=== PATIENT | female | born 1955 | race Hispanic/Latino ===

== ENCOUNTER 2016-11-28 18:25 | Emergency (ER) | payer SELFPAY ==
--- NOTE | 2016-11-28 19:17 | EDDOCDS ---
Nurse's Notes [facility] Name: Mindy Cantu Age: 61 yrs Sex: Female : 1955 Arrival Date: 11/28/2016 Time: 18:25 Bed 17 Private MD: NO PRIMARY PHYSICIAN, . Diagnosis: Acute actinic otitis externa, bilateral;Conjunctivitis;Diarrhea, unspecified Presentation: 11/28 18:34 Presenting complaint: Patient states: Bilateral ear pain radiating to throat, ck1 productive cough, drainage from left eye for one week. Diarrhea with vomiting started today. Adult Sepsis Screening: The patient does not have new or worsening altered mentation. Patient's respiratory rate is less than 22. Systolic blood pressure is greater than 100. Patient has a qSOFA score of 0- Negative Sepsis Screen. Suicide/Homicide risk assessment- the patient denies having any suicidal and/or homicidal ideations and does not present with any other emotional, behavioral or mental health complaints. Status: Patient is not a nursing surgical services director or dependent. Transition of care: patient was not received from another setting of care. 18:34 Acuity: RADHIKA Level 3 ck1 18:34 Method Of Arrival: Walkin/Carried/Asstd ck1 Triage Assessment: 18:37 General: Appears in no apparent distress, comfortable, Behavior is appropriate for age, ck1 cooperative. Pain: Location: right ear and left ear Pain currently is 8 out of 10 on a pain scale. HIV screening NA for this visit Offered previously. GI: Reports bloating. : Denies burning with urination, urinary frequency. Derm: Skin is intact, is healthy with good turgor, Skin is pink, warm & dry. Historical: - Allergies: No known drug Allergies; - Home Meds: 1. levothyroxine 88 mcg Oral cap 1 cap once daily 2. simvastatin 20 mg Oral tab 1 tab once daily - PMHx: Hypothyroidism; Hypercholesterolemia; - PSHx: Hysterectomy; - Social history: Smoking status: Patient states was never smoker of tobacco. Preferred Language: Yakut. - Family history: Not pertinent. - : The pt / caregiver states he / she is not on anticoagulants. Home medication list is obtained from family members. - Exposure Risk Screening:: None identified. Screenin:15 Screening information is obtained from family members. Fall risk: No risks identified. dsf Assistance ADL's: requires no assistance with activities of daily living. Abuse/DV Screen: The patient / caregiver reports he/she is: not in a situation that causes fear, pain or injury. Nutritional screening: No deficits noted. Advance Directives: Currently, there is no health care proxy. home support is adequate. Assessment: 19:15 Adult Sepsis Screening: The patient does not have new or worsening altered mentation. dsf Patient's respiratory rate is less than 22. Systolic blood pressure is greater than 100. Patient has a qSOFA score of 0- Negative Sepsis Screen. General: Appears in no apparent distress, Behavior is appropriate for age, cooperative. Neurological: Level of Consciousness is awake, alert. Cardiovascular: Capillary refill < 3 seconds. Respiratory: Airway is patent Respiratory effort is even, unlabored, Respiratory pattern is regular, symmetrical. GI: Abdomen is non- distended Bowel sounds present X 4 quads. Abd is soft and non tender X 4 quads. Vital Signs: 18:30 BP 145 / 73; Pulse 91; Resp 18 S; Temp 99.4(O); Pulse Ox 97% on R/A; Weight 76.2 kg gr2 (M); Height 4 ft. 11 in. (149.86 cm) (M); Pain 7/10; 18:30 Body Mass Index 33.93 (76.20 kg, 149.86 cm) gr2 Vitals: 18:30 Log In Time: November 28, 2016 at 18:30. gr2 ED Course: 18:27 Patient visited by Nikhil Murcia. gr2 18:27 Patient moved to Waiting gr2 18:28 NO PRIMARY PHYSICIAN, . is Private Physician. gr2 18:33 Patient visited by Nikhil Murcia. gr2 18:33 Patient visited by Nikhil Murcia. gr2 18:33 Patient moved to Pre RCE gr2 18:35 Triage Initiated ck1 18:38 Patient moved to 17 ck1 18:41 [facility] ke 18:41 Patient visited by Rinku Escalante FNP. ke 18:41 Patient visited by Rinku Escalante FNP. ke 18:59 [facility] is Referral Physician. ke 19:15 The patient / caregiver is instructed regarding the plan of care and ED course. dsf 19:15 No IV's were initiated during this patient's visit. No procedures done that require dsf assistance. Order Results: There are currently no results for this order. Outcome: 19:00 Discharge ordered by Provider. kassy 19:15 Discharge Assessment: Patient awake, alert and oriented x 3. No cognitive and/or dsf functional deficits noted. Patient verbalized understanding of disposition instructions. patient administered narcotics - no. The following High Risk Discharge criteria are identified: None. Discharged to home ambulatory. Condition: stable. Discharge instructions given to patient, Instructed on discharge instructions, follow up and referral plans. medication usage, no driving heavy equipment, Demonstrated understanding of instructions, medications, Pt was receptive of discharge instructions/ teaching. Prescriptions given X 5. No special radiology studies were completed. Property sent home with patient. 19:16 Patient left the ED. dsf Signatures: Rinku Escalante, HAND TACKER HAND TACKER Clau WoodRN RN ck1 Tere KlineRN RN dsf Nikhil Murcia gr2 Corrections: (The following items were deleted from the chart) 18:33 18:29 Presenting complaint: ck1 ck1 MTDD
--- NOTE | 2016-11-28 19:17 | EDDOCDS ---
Physician Documentation [facility] Name: Mindy Cantu Age: 61 yrs Sex: Female : 1955 Arrival Date: 11/28/2016 Time: 18:25 Bed 17 Private MD: NO PRIMARY PHYSICIAN, . Disposition: 11/28 19:05 A printed prescription for a controlled substance(s) was provided because [facility] is not able to accept EPCS. Disposition: 11/28/16 19:00 Discharged to Home/Self Care. Impression: Acute actinic otitis externa, bilateral, Conjunctivitis, Diarrhea, unspecified. - Condition is Stable. - Discharge Instructions: Conjunctivitis (Viral and Bacterial), Diarrhea, Otitis Externa. - Prescriptions for Zofran 4 mg Oral Tablet - take 1 tablet by ORAL route 4 times per day As needed; 10 tablet. Amoxicillin 875 mg Oral Tablet - take 1 tablet by ORAL route every 12 hours for 10 days; 20 tablet. Cipro HC 0.2- 1 % Otic Drops, Suspension - instill 3 drop by OTIC route every 12 hours for 7 days; 10 milliliter. Gentamicin 0.3 % Ophthalmic Drops - instill 1 drop by OPHTHALMIC route every 4 hours for 7 days; 1 bottle. [place] 5- 325 mg Oral Tablet - take 1 tablet by ORAL route every 6 hours As needed MDD: 4 tabs; 20 tablet. - Medication Reconciliation, Local Pharmacy Hours form. - Follow up: [facility]; When: Call to arrange an appointment; Reason: Recheck today's complaints, Continuance of care. - Problem is an ongoing problem. - Symptoms are unchanged. Historical: - Allergies: No known drug Allergies; - Home Meds: 1. levothyroxine 88 mcg Oral cap 1 cap once daily 2. simvastatin 20 mg Oral tab 1 tab once daily - PMHx: Hypothyroidism; Hypercholesterolemia; - PSHx: Hysterectomy; - Social history: Smoking status: Patient states was never smoker of tobacco. Preferred Language: Zimbabwean. - Family history: Not pertinent. - : The pt / caregiver states he / she is not on anticoagulants. Home medication list is obtained from family members. - Exposure Risk Screening:: None identified. Vital Signs: 18:30 BP 145 / 73; Pulse 91; Resp 18 S; Temp 99.4(O); Pulse Ox 97% on R/A; Weight 76.2 kg / gr2 167.99 lbs (M); Height 4 ft. 11 in. (149.86 cm) (M); Pain 04/15; 18:30 Body Mass Index 33.93 (76.20 kg, 149.86 cm) gr2 Signatures: Rinku Escalante, SYSTEM DESIGNER SYSTEM DESIGNER Clau Wood RN RN ck1 Tere Kline RN RN dsf MTDD
--- NOTE | 2016-11-30 20:17 | EDDOCDS ---
Physician Documentation [facility] Name: Mindy Cantu Age: 61 yrs Sex: Female : 1955 Arrival Date: 11/28/2016 Time: 18:25 Bed 17 Private MD: NO PRIMARY PHYSICIAN, . Disposition: 11/28 19:05 A printed prescription for a controlled substance(s) was provided because [facility] is not able to accept EPCS. Disposition: 11/28/16 19:00 Discharged to Home/Self Care. Impression: Acute actinic otitis externa, bilateral, Conjunctivitis, Diarrhea, unspecified. - Condition is Stable. - Discharge Instructions: Conjunctivitis (Viral and Bacterial), Diarrhea, Otitis Externa. - Prescriptions for Zofran 4 mg Oral Tablet - take 1 tablet by ORAL route 4 times per day As needed; 10 tablet. Amoxicillin 875 mg Oral Tablet - take 1 tablet by ORAL route every 12 hours for 10 days; 20 tablet. Cipro HC 0.2- 1 % Otic Drops, Suspension - instill 3 drop by OTIC route every 12 hours for 7 days; 10 milliliter. Gentamicin 0.3 % Ophthalmic Drops - instill 1 drop by OPHTHALMIC route every 4 hours for 7 days; 1 bottle. [place] 5- 325 mg Oral Tablet - take 1 tablet by ORAL route every 6 hours As needed MDD: 4 tabs; 20 tablet. - Medication Reconciliation, Local Pharmacy Hours form. - Follow up: [facility]; When: Call to arrange an appointment; Reason: Recheck today's complaints, Continuance of care. - Problem is an ongoing problem. - Symptoms are unchanged. Historical: - Allergies: No known drug Allergies; - Home Meds: 1. levothyroxine 88 mcg Oral cap 1 cap once daily 2. simvastatin 20 mg Oral tab 1 tab once daily - PMHx: Hypothyroidism; Hypercholesterolemia; - PSHx: Hysterectomy; - Social history: Smoking status: Patient states was never smoker of tobacco. Preferred Language: Argentine. - Family history: Not pertinent. - : The pt / caregiver states he / she is not on anticoagulants. Home medication list is obtained from family members. - Exposure Risk Screening:: None identified. Vital Signs: 18:30 BP 145 / 73; Pulse 91; Resp 18 S; Temp 99.4(O); Pulse Ox 97% on R/A; Weight 76.2 kg / gr2 167.99 lbs (M); Height 4 ft. 11 in. (149.86 cm) (M); Pain 7/10; 18:30 Body Mass Index 33.93 (76.20 kg, 149.86 cm) gr2 MDM: 19:19 Financial registration complete. 20:35 [facility] Payment Agreement was scanned into [email or web address] and attached to record. gb 11/29 19:07 T-Sheet-- Draft Copy was scanned into [email or web address] and attached to record. klr Signatures: Shanique Thomas, Reg Reg gb Rinku Escalante, ELECTRIC POWER MACHINE OPERATOR ELECTRIC POWER MACHINE OPERATOR Clau Wood RN RN ckTere Wang RN RN Hali Demarco The chart was reviewed and I authenticate all verbal orders and agree with the evaluation and treatment provided.Attachments: 11/28 20:35 [facility] Payment Agreement gb 11/29 19:07 T-Sheet-- Draft Copy klr Chart Complete MTDD
--- NOTE | 2016-11-30 20:17 | EDDOCDS ---
Nurse's Notes [facility] Name: Mindy Cantu Age: 61 yrs Sex: Female : 1955 Arrival Date: 11/28/2016 Time: 18:25 Bed 17 Private MD: NO PRIMARY PHYSICIAN, . Diagnosis: Acute actinic otitis externa, bilateral;Conjunctivitis;Diarrhea, unspecified Presentation: 11/28 18:34 Presenting complaint: Patient states: Bilateral ear pain radiating to throat, ck1 productive cough, drainage from left eye for one week. Diarrhea with vomiting started today. Adult Sepsis Screening: The patient does not have new or worsening altered mentation. Patient's respiratory rate is less than 22. Systolic blood pressure is greater than 100. Patient has a qSOFA score of 0- Negative Sepsis Screen. Suicide/Homicide risk assessment- the patient denies having any suicidal and/or homicidal ideations and does not present with any other emotional, behavioral or mental health complaints. Status: Patient is not a clinical services specialist or dependent. Transition of care: patient was not received from another setting of care. 18:34 Acuity: RADHIKA Level 3 ck1 18:34 Method Of Arrival: Walkin/Carried/Asstd ck1 Triage Assessment: 18:37 General: Appears in no apparent distress, comfortable, Behavior is appropriate for age, ck1 cooperative. Pain: Location: right ear and left ear Pain currently is 8 out of 10 on a pain scale. HIV screening NA for this visit Offered previously. GI: Reports bloating. : Denies burning with urination, urinary frequency. Derm: Skin is intact, is healthy with good turgor, Skin is pink, warm & dry. Historical: - Allergies: No known drug Allergies; - Home Meds: 1. levothyroxine 88 mcg Oral cap 1 cap once daily 2. simvastatin 20 mg Oral tab 1 tab once daily - PMHx: Hypothyroidism; Hypercholesterolemia; - PSHx: Hysterectomy; - Social history: Smoking status: Patient states was never smoker of tobacco. Preferred Language: Sierra Leonean. - Family history: Not pertinent. - : The pt / caregiver states he / she is not on anticoagulants. Home medication list is obtained from family members. - Exposure Risk Screening:: None identified. Screenin:15 Screening information is obtained from family members. Fall risk: No risks identified. dsf Assistance ADL's: requires no assistance with activities of daily living. Abuse/DV Screen: The patient / caregiver reports he/she is: not in a situation that causes fear, pain or injury. Nutritional screening: No deficits noted. Advance Directives: Currently, there is no health care proxy. home support is adequate. Assessment: 19:15 Adult Sepsis Screening: The patient does not have new or worsening altered mentation. dsf Patient's respiratory rate is less than 22. Systolic blood pressure is greater than 100. Patient has a qSOFA score of 0- Negative Sepsis Screen. General: Appears in no apparent distress, Behavior is appropriate for age, cooperative. Neurological: Level of Consciousness is awake, alert. Cardiovascular: Capillary refill < 3 seconds. Respiratory: Airway is patent Respiratory effort is even, unlabored, Respiratory pattern is regular, symmetrical. GI: Abdomen is non- distended Bowel sounds present X 4 quads. Abd is soft and non tender X 4 quads. Vital Signs: 18:30 BP 145 / 73; Pulse 91; Resp 18 S; Temp 99.4(O); Pulse Ox 97% on R/A; Weight 76.2 kg gr2 (M); Height 4 ft. 11 in. (149.86 cm) (M); Pain 7/10; 18:30 Body Mass Index 33.93 (76.20 kg, 149.86 cm) gr2 Vitals: 18:30 Log In Time: November 28, 2016 at 18:30. gr2 ED Course: 18:27 Patient visited by Nikhil Murcia. gr2 18:27 Patient moved to Waiting gr2 18:28 NO PRIMARY PHYSICIAN, . is Private Physician. gr2 18:33 Patient visited by Nikhil Murcia. gr2 18:33 Patient visited by Nikhil Murcia. gr2 18:33 Patient moved to Pre RCE gr2 18:35 Triage Initiated ck1 18:38 Patient moved to 17 ck1 18:41 Rink[facility]alante FNP is [facility]. ke 18:41 Patient visited by Rinku Escalante FNP. ke 18:41 Patient visited by Rinku Escalante FNP. ke 18:59 [facility] is Referral Physician. ke 19:15 The patient / caregiver is instructed regarding the plan of care and ED course. dsf 19:15 No IV's were initiated during this patient's visit. No procedures done that require dsf assistance. 19:19 Patient visited by Shanique Thomas, Reg. gb 20:31 Patient name changed from Mindy\S\A\S\Cantu\S\ to Mindy\S\Janie\S\Cantu. EDMS 20:35 [facility] Payment Agreement was scanned into [employer] and attached to record. gb 11/29 19:07 T-Sheet-- Draft Copy was scanned into [employer] and attached to record. klr Order Results: There are currently no results for this order. Outcome: 11/28 19:00 Discharge ordered by Provider. kassy 19:15 Discharge Assessment: Patient awake, alert and oriented x 3. No cognitive and/or dsf functional deficits noted. Patient verbalized understanding of disposition instructions. patient administered narcotics - no. The following High Risk Discharge criteria are identified: None. Discharged to home ambulatory. Condition: stable. Discharge instructions given to patient, Instructed on discharge instructions, follow up and referral plans. medication usage, no driving heavy equipment, Demonstrated understanding of instructions, medications, Pt was receptive of discharge instructions/ teaching. Prescriptions given X 5. No special radiology studies were completed. Property sent home with patient. 19:16 Patient left the ED. dsf Signatures: Dispatcher [employer] [facility] Shanique Thomas, Fco Reg Rinku Howard, RESCUE INSTRUCTOR RESCUE INSTRUCTOR Clau WoodRN RN ck1 Tere Kline RN RN dsf Nikhil Murcia gr2 Hali Barba Corrections: (The following items were deleted from the chart) 18:33 18:29 Presenting complaint: ck1 ck1 Chart Complete MTDD
--- NOTE | 2016-11-30 20:17 | EDDOCDS ---
Physician Documentation [facility] Name: Mindy Cantu Age: 61 yrs Sex: Female : 1955 Arrival Date: 11/28/2016 Time: 18:25 Bed 17 Private MD: NO PRIMARY PHYSICIAN, . Disposition: 11/28 19:05 A printed prescription for a controlled substance(s) was provided because [facility] is not able to accept EPCS. Disposition: 11/28/16 19:00 Discharged to Home/Self Care. Impression: Acute actinic otitis externa, bilateral, Conjunctivitis, Diarrhea, unspecified. - Condition is Stable. - Discharge Instructions: Conjunctivitis (Viral and Bacterial), Diarrhea, Otitis Externa. - Prescriptions for Zofran 4 mg Oral Tablet - take 1 tablet by ORAL route 4 times per day As needed; 10 tablet. Amoxicillin 875 mg Oral Tablet - take 1 tablet by ORAL route every 12 hours for 10 days; 20 tablet. Cipro HC 0.2- 1 % Otic Drops, Suspension - instill 3 drop by OTIC route every 12 hours for 7 days; 10 milliliter. Gentamicin 0.3 % Ophthalmic Drops - instill 1 drop by OPHTHALMIC route every 4 hours for 7 days; 1 bottle. [place] 5- 325 mg Oral Tablet - take 1 tablet by ORAL route every 6 hours As needed MDD: 4 tabs; 20 tablet. - Medication Reconciliation, Local Pharmacy Hours form. - Follow up: [facility]; When: Call to arrange an appointment; Reason: Recheck today's complaints, Continuance of care. - Problem is an ongoing problem. - Symptoms are unchanged. Historical: - Allergies: No known drug Allergies; - Home Meds: 1. levothyroxine 88 mcg Oral cap 1 cap once daily 2. simvastatin 20 mg Oral tab 1 tab once daily - PMHx: Hypothyroidism; Hypercholesterolemia; - PSHx: Hysterectomy; - Social history: Smoking status: Patient states was never smoker of tobacco. Preferred Language: Jordanian. - Family history: Not pertinent. - : The pt / caregiver states he / she is not on anticoagulants. Home medication list is obtained from family members. - Exposure Risk Screening:: None identified. Vital Signs: 18:30 BP 145 / 73; Pulse 91; Resp 18 S; Temp 99.4(O); Pulse Ox 97% on R/A; Weight 76.2 kg / gr2 167.99 lbs (M); Height 4 ft. 11 in. (149.86 cm) (M); Pain 7/10; 18:30 Body Mass Index 33.93 (76.20 kg, 149.86 cm) gr2 MDM: 19:19 Financial registration complete. 20:35 [facility] Payment Agreement was scanned into [employer] and attached to record. gb 11/29 19:07 T-Sheet-- Draft Copy was scanned into [employer] and attached to record. klr Signatures: Shanique Thomas, Reg Reg gb Rinku Escalante, PHARMACY CLINICAL SPECIALIST PHARMACY CLINICAL SPECIALIST Clau Wood RN RN ckTere Wang RN RN Hali Demarco The chart was reviewed and I authenticate all verbal orders and agree with the evaluation and treatment provided.Attachments: 11/28 20:35 [facility] Payment Agreement gb 11/29 19:07 T-Sheet-- Draft Copy klr Chart Complete MTDD
== END 2016-11-28 19:16 | disposition home or self-care (01) ==
LOC: M ED 18:25
DX: H60.513 Acute actinic otitis externa, bilateral (principal); R19.7 Diarrhea, unspecified; H10.30 Unspecified acute conjunctivitis, unspecified eye; E03.9 Hypothyroidism, unspecified; E78.00 Pure hypercholesterolemia, unspecified; Z79.899 Other long term (current) drug therapy